=== PATIENT | male | born 1985 | race Caucasian/White ===

== ENCOUNTER 2019-03-23 12:31 | Emergency (ER) | payer MEDICAID ==
[~2019-03-23] VITALS: Ht 177.8 cm; Wt 90.0 kg
[~2019-03-23 12:31] MED LIST: LIDOcaine 1% W/epiNEPHrine 1:100,000 20ml vial ONE
[2019-03-23 12:45] VITALS: BP 120/65
[2019-03-23] MEDS ORDERED: TETanus/Pertussis (Acell)/Diphther VAC/PF (Tdap-Adult) 0.5ml syringe IMVAC ONE (13:30)
[2019-03-23] MEDS ORDERED: AMOX-580 PO (13:38)
== END 2019-03-23 14:57 | disposition home or self-care (01) ==
LOC: ER 12:33
DX: S81.812A Laceration without foreign body, left lower leg, initial encounter (principal); W54.0XXA Bitten by dog, initial encounter; Y93.89 Activity, other specified; Y92.89 Other specified places as the place of occurrence of the external cause; Y99.9 Unspecified external cause status
CPT/HCPCS: 12002; 90471; 90715; 99284

== ENCOUNTER 2019-04-03 08:14 | Emergency (ER) | payer MEDICAID ==
[~2019-04-03] VITALS: Ht 177.8 cm; Wt 41.3 kg
[2019-04-03 08:21] VITALS: BP 138/71
== END 2019-04-03 08:40 | disposition home or self-care (01) ==
LOC: ER 08:15
DX: S81.812D Laceration without foreign body, left lower leg, subsequent encounter (principal); X58.XXXD Exposure to other specified factors, subsequent encounter
CPT/HCPCS: 99281